=== PATIENT | female | born 1935 | race African-American/Black ===

== ENCOUNTER 2024-04-02 18:26 | Emergency (ER) | payer OTHER ==
[~2024-04-02] VITALS: Ht 167.6 cm; Wt 72.0 kg
[2024-04-02 18:28] VITALS: TEMP 98.4; O2SAT 98
[2024-04-02 20:20] LABS: BASOPHILS % 0.4 % (0.0-2.0); HEMATOCRIT. 44.7 % (36.0-48.0); LYMPHOCYTES % 9.8 % (20.0-50.0); MEAN CORPUSCULAR HEMOGLOBIN 30.2 pg (28.0-32.0); MEAN CORPUSCULAR HGB CONC 33.5 g/dL (31.0-37.0); MEAN CORPUSCULAR VOLUME 90.1 fL (81.0-99.0); MEAN PLATELET VOLUME 8.4 fl (7.4-10.4); MONOCYTES % 11.5 % (2.0-8.0); NEUTROPHILS % 78.3 % (40.0-76.0); PLATELET 268 x1000/uL (130-400); RED BLOOD CELL COUNT 4.96 mill/uL (4.2-5.4); WHITE BLOOD COUNT 4.9 x1000/uL (4.5-11.0)
[2024-04-02 20:26] LABS: POTASSIUM 4.3 mEq/L (3.5-5.1)
[2024-04-02 20:27] LABS: CALCIUM 9.9 mg/dL (8.7-10.4)
[2024-04-02 20:32] LABS: CREATININE 1.1 mg/dL (0.6-1.0); PROTHROMBIN TIME 11.6 sec (9.6-11.0)
[2024-04-02 20:34] VITALS: BP 146/55; PULSE 63; RESP 16; O2SAT 96
== END 2024-04-02 21:06 | disposition home or self-care (01) ==
LOC: ER 18:26
DX: E11.649 Type 2 diabetes mellitus with hypoglycemia without coma (principal); I10 Essential (primary) hypertension; Z86.73 Personal history of transient ischemic attack (TIA), and cerebral infarction without residual deficits
CPT/HCPCS: 36415; 80048; 82962; 83880; 85025; 99283